=== PATIENT | male | born 1965 ===

== ENCOUNTER 2018-03-03 12:20 | Inpatient (IN) | payer MEDICAID ==
[2018-03-03] VITALS (8 sets, daily range): BP systolic 98–117; BP diastolic 56–82; BMI 14.8
[~2018-03-03] VITALS: Ht 185.4 cm; Wt 83.6 kg
[2018-03-03] MEDS ORDERED: IBUPROFEN800 MG PO (12:25)
[2018-03-03 13:04] LABS: BASOPHILS 0.2 % (0-2); EOSINOPHILS 0.1 % (0-7); HEMATOCRIT 32.9 % (42.0-54.0); HEMOGLOBIN 11.2 g/dL (13.5-17.5); IMMATURE GRANULOCYTES 1.3 % (0-5); LYMPHOCYTES 3.8 % (15-50); MCH 28.6 pg (26.0-34.0); MCV 83.9 fL (80.0-100.0); MEAN PLATELET VOLUME 11.5 fL (7.4-10.4); MONOCYTES 7.5 % (2-11); NEUTROPHILS 87.1 % (40-80); PLATELET COUNT 275 10x3/uL (130-400); RBC 3.92 10x6/uL (4.20-6.10); RDW 14.9 % (11.5-14.5); WBC 10.2 10x3/uL (4.8-10.8)
[2018-03-03 13:14] LABS: APTT 37.5 SECONDS (22.8-39.4); INR 1.02 (0.85-1.17); PROTIME 12.9 SECONDS (11.6-15.0)
[2018-03-03 13:30] LABS: ALBUMIN 1.5 g/dL (3.4-5.0); ALKALINE PHOSPHATASE 83 U/L (46-116); ALT (SGPT) 13 U/L (10-68); AMYLASE - SERUM 17 U/L (25-115); BILIRUBIN - TOTAL 0.63 mg/dL (0.2-1.3); CALC OSMOLALITY 273 mosm/kg (275-300); CALCIUM 8.1 mg/dL (8.5-10.1); CARBON DIOXIDE 22.4 mmol/L (21.0-32.0); CHLORIDE - SERUM 103 mmol/L (98-107); CKMB 1.6 U/L (0.0-3.6); CREATINE KINASE 73 UL (21-232); CREATININE - SERUM 0.6 mg/dL (0.6-1.3); GLUCOSE 71 mg/dL (74-106); PROTEIN - SERUM 7.2 g/dL (6.4-8.2); SODIUM 137 mmol/L (136-145); TROPONIN-I < 0.017 ng/mL (0.000-0.060); UREA NITROGEN 17 mg/dL (7-18); eGFR NON AFRICAN AMERICAN > 90 mL/min (90-120)
[2018-03-03 13:33] LABS: LIPASE 32 U/L (73-393)
[2018-03-03 13:35] LABS: POTASSIUM - SERUM 2.8 mmol/L (3.5-5.1)
[2018-03-03 13:57] LABS: APPEARANCE CLEAR (CLEAR); COLOR YELLOW (YELLOW); SPECIFIC GRAVITY 1.015 (1.005-1.020)
[2018-03-03 13:58] LABS: BACTERIA FEW /hpf (NONE SEEN); BILIRUBIN NEGATIVE (NEGATIVE); EPITHELIAL CELLS 0-5 /hpf (0-5); GLUCOSE NEGATIVE (NEGATIVE); KETONE MODERATE mg/dL (NEGATIVE); MUCUS <1+ /lpf (NONE SEEN); NITRITE NEGATIVE (NEGATIVE); PROTEIN 1+ mg/dL (NEGATIVE); RED CELLS - URINE RARE /hpf (0-5); WHITE CELLS - URINE RARE /hpf (0-5)
[2018-03-03 14:54] LABS: HIV 1 & 2- RAPID SCREEN NEGATIVE (NEGATIVE)
[2018-03-04 01:05] VITALS: BP 117/75
[2018-03-04 05:11] LABS: BASOPHILS 0.2 % (0-2); EOSINOPHILS 0 % (0-7); HEMATOCRIT 29.6 % (42.0-54.0); HEMOGLOBIN 10.1 g/dL (13.5-17.5); IMMATURE GRANULOCYTES 0.7 % (0-5); LYMPHOCYTES 5.2 % (15-50); MCH 28.1 pg (26.0-34.0); MCHC 34.1 g/dL (31.0-37.0); MCV 82.5 fL (80.0-100.0); MONOCYTES 3.5 % (2-11); NEUTROPHILS 90.4 % (40-80); RBC 3.59 10x6/uL (4.20-6.10); RDW 14.8 % (11.5-14.5)
[2018-03-04 05:22] LABS: PLATELET COUNT 192 10x3/uL (130-400)
[2018-03-04 05:42] LABS: ALKALINE PHOSPHATASE 67 U/L (46-116); ALT (SGPT) 17 U/L (10-68); BILIRUBIN - TOTAL 0.68 mg/dL (0.2-1.3); CALC OSMOLALITY 274 mosm/kg (275-300); CALCIUM 7.2 mg/dL (8.5-10.1); CARBON DIOXIDE 22.9 mmol/L (21.0-32.0); CHLORIDE - SERUM 104 mmol/L (98-107); CREATININE - SERUM 0.4 mg/dL (0.6-1.3); PROTEIN - SERUM 5.8 g/dL (6.4-8.2); SODIUM 138 mmol/L (136-145); UREA NITROGEN 14 mg/dL (7-18); eGFR NON AFRICAN AMERICAN > 90 mL/min (90-120)
[2018-03-04 05:43] LABS: ALBUMIN 1.1 g/dL (3.4-5.0); GLUCOSE 61 mg/dL (74-106)
[2018-03-04 06:29] VITALS: BP 124/80
[2018-03-04 08:00] VITALS: BP 115/69
[2018-03-04 12:26] VITALS: BMI 14.7
[2018-03-04 12:54] VITALS: BP 110/67
[2018-03-04 14:42] LABS: % SATURATION 17 % (15-55); IRON 12 ug/dl (35-150); TOTAL IRON BIND CAPACITY 67 ug/dl (260-445); UNSAT IRON BIND CAPACITY 55 ug/dl (150-375)
--- NOTE | 2018-03-04 16:30 | MORECARE ---
CASE MANAGEMENT DISCHARGE SUMMARY PATIENT: DENISHA DE LOS SANTOS UNIT: [id number] ADM DATE: 03/03/18 AGE: 52 : 63 SEX: M ROOM/BED: D.2222 AUTHOR: MARIA A ELLIS PHYSICIAN: REFERRING PHYSICIAN: TANYA PEREZ MD DATE OF SERVICE: 03/04/18 Discharge Plan Patient Name: DENISHA DE LOS SANTOS [facility] [facility] 1965 Planned Disposition: Home Anticipated Discharge Date: Discharge Date: Expected LOS: Initial Reviewer: [email or web address] Initial Review Date: 03/04/2018 Generated: 03/04/18 5:30 pm Patient Name: DENISHA DE LOS SANTOS Page [id number] at 1630 All edits/amendments must be made on the electronic document DICTATION DATE: 03/04/18 1630 SHANK CARRIER: KATHRYN 03/04/18 1630 RPT#: [id number] DC DATE: STATUS: ADM IN [facility] [address] [place] [address] END OF REPORT
--- NOTE | 2018-03-04 16:46 | MORECARE ---
CASE MANAGEMENT DISCHARGE SUMMARY PATIENT: DENISHA DE LOS SANTOS UNIT: [id number] ADM DATE: 03/03/18 AGE: 52 : 63 SEX: M ROOM/BED: D.2222 AUTHOR: CALEB,DOC PHYSICIAN: REFERRING PHYSICIAN: TANYA PEREZ MD DATE OF SERVICE: 03/04/18 Discharge Plan Patient Name: DENISHA DE LOS SANTOS Facility: [facility]:[place] : 1965 Planned Disposition: Home Anticipated Discharge Date: Discharge Date: Expected LOS: Initial Reviewer: [email or web address] Initial Review Date: 03/04/2018 Generated: 03/04/18 5:46 pm Comments DCP- Discharge Planning Updated by [email or web address]: Helena Cabrera on 03/04/18 3:[address] Patient Name: DENISHA DE LOS SANTOS Admission Status: ER Accout number: [id number] Admission Date: 03-03-2018 : 1965 Admission Diagnosis: Attending: TANYA PEREZ Current LOS: 1 Anticipated DC Date: Planned Disposition: Home Primary Insurance: MEDICAID [place] PENDING Discharge Planning Comments: CM met with patient to discuss discharge planning, he is alone in the room. States he lives with his 21 year old son. States his will take him home on discharge (he does not live with his , states she is his best friend). States he is independent with all ADL's and IADL's. States he does not have any DME or need any DME. Declines need for home health services. No needs currently identified. He does not have a qualifying diagnosis for oxygen or nebulizer. His Medicaid is pending. CM will continue to follow and assist with discharge planning/needs. Wood Milling Machine Hand: Helena Cabrera DCPIA - Discharge Planning Initial Assessment Updated by [email or web address]: Helena Cabrera on 03/04/18 4:31 pm * Is the patient Alert and Oriented? Yes * How many steps to enter\exit or inside your home? 4/0 * PCP Unknown - states has seen an TOUR ACTOR on [address] near [facility] * Pharmacy [facility] on [facility] * Preadmission Environment Home with Family * ADLs Independent * Equipment None * List name and contact numbers for known caregivers / representatives who currently or will assist patient after discharge: Eva - - [phone] Shannan - son * Verbal permission to speak to the caregivers and representatives has been obtained from the patient. Yes * Community resources currently utilized None * Additional services required to return to the preadmission environment? No * Can the patient safely return to the preadmission environment? Yes * Has this patient been hospitalized within the prior 30 days at any hospital? No Last DP export: 03/04/18 3:30 Patient Name: DENISHA DE LOS SANTOS Page [id number] at 1646 All edits/amendments must be made on the electronic document DICTATION DATE: 03/04/181645 ARMED SECURITY PROFESSIONAL: KATHRYN 03/04/181645 RPT#: [id number] DC DATE: STATUS: ADM IN [facility] [address] [place] [address] END OF REPORT
[2018-03-04 17:02] VITALS: Ht 185.4 cm; Wt 83.6 kg
[2018-03-04 17:21] LABS: ERYTHROCYTE SEDIMENTATION RATE 35 mm/hr (0-20)
[2018-03-04 20:41] VITALS: BP 143/92
[2018-03-05] VITALS (7 sets, daily range): BP systolic 103–130; BP diastolic 74–92
[2018-03-05 03:31] LABS: APPEARANCE CLEAR (CLEAR); COLOR DK YELLOW (YELLOW)
[2018-03-05 03:32] LABS: BILIRUBIN NEGATIVE (NEGATIVE); GLUCOSE NEGATIVE (NEGATIVE); KETONE MODERATE mg/dL (NEGATIVE); NITRITE NEGATIVE (NEGATIVE); PROTEIN NEGATIVE (NEGATIVE)
[2018-03-05 03:40] LABS: UDS - AMPHET NEGATIVE QUAL (NEGATIVE); UDS - BARB NEGATIVE QUAL (NEGATIVE); UDS - BENZO NEGATIVE QUAL (NEGATIVE); UDS - COCAINE NEGATIVE QUAL (NEGATIVE); UDS - OPIATE POSITIVE QUAL (NEGATIVE); UDS - PCP NEGATIVE QUAL (NEGATIVE); UDS - THC POSITIVE QUAL (NEGATIVE)
[2018-03-05 05:19] LABS: BASOPHILS 0.2 % (0-2); EOSINOPHILS 0 % (0-7); HEMATOCRIT 30.2 % (42.0-54.0); HEMOGLOBIN 10.2 g/dL (13.5-17.5); IMMATURE GRANULOCYTES 0.7 % (0-5); LYMPHOCYTES 7.8 % (15-50); MCH 27.9 pg (26.0-34.0); MCHC 33.8 g/dL (31.0-37.0); MCV 82.5 fL (80.0-100.0); MEAN PLATELET VOLUME 12.8 fL (7.4-10.4); MONOCYTES 5.1 % (2-11); NEUTROPHILS 86.2 % (40-80); PLATELET COUNT 239 10x3/uL (130-400); RBC 3.66 10x6/uL (4.20-6.10); WBC 10.5 10x3/uL (4.8-10.8)
[2018-03-05 05:24] LABS: CALC OSMOLALITY 273 mosm/kg (275-300); CALCIUM 7.5 mg/dL (8.5-10.1); CARBON DIOXIDE 22.4 mmol/L (21.0-32.0); CHLORIDE - SERUM 104 mmol/L (98-107); CREATININE - SERUM 0.5 mg/dL (0.6-1.3); GLUCOSE 85 mg/dL (74-106); POTASSIUM - SERUM 3.2 mmol/L (3.5-5.1); SODIUM 137 mmol/L (136-145); UREA NITROGEN 14 mg/dL (7-18); eGFR NON AFRICAN AMERICAN > 90 mL/min (90-120)
[2018-03-05 09:17] LABS: FOLATE (FOLIC ACID) - SERUM 7.3 ng/mL (>3.0)
[2018-03-05 12:15] LABS: ANA REFLEX - ANTICHROMATIN ABS 0.3 AI (0.0-0.9); ANA REFLEX - CENTROMERE B ABS <0.2 AI (0.0-0.9); ANA REFLEX - DBL STRANDED DNA 1 IU/mL (0-9); ANA REFLEX - DIRECT Positive (Negative); ANA REFLEX - JO-1 AB <0.2 AI (0.0-0.9); ANA REFLEX - RNP ANTIBODIES 0.9 AI (0.0-0.9); ANA REFLEX - SCL-70 <0.2 AI (0.0-0.9); ANA REFLEX - SJOGRENS AB SSA >8.0 AI (0.0-0.9); ANA REFLEX - SJOGRENS AB SSB <0.2 AI (0.0-0.9); ANA REFLEX - SMITH AB 0.4 AI (0.0-0.9)
[2018-03-06] VITALS (65 sets, daily range): BP systolic 74–172; BP diastolic 44–118
[2018-03-06 03:32] LABS: BASOPHILS 0.2 % (0-2); EOSINOPHILS 0 % (0-7); HEMATOCRIT 31.1 % (42.0-54.0); HEMOGLOBIN 10.5 g/dL (13.5-17.5); IMMATURE GRANULOCYTES 0.7 % (0-5); MCH 27.7 pg (26.0-34.0); MCHC 33.8 g/dL (31.0-37.0); MCV 82.1 fL (80.0-100.0); MEAN PLATELET VOLUME 11.9 fL (7.4-10.4); MONOCYTES 5.3 % (2-11); NEUTROPHILS 83.8 % (40-80); PLATELET COUNT 207 10x3/uL (130-400); RBC 3.79 10x6/uL (4.20-6.10); RDW 14.6 % (11.5-14.5); WBC 11.2 10x3/uL (4.8-10.8)
[2018-03-06 03:47] LABS: CALC OSMOLALITY 273 mosm/kg (275-300); CALCIUM 7.4 mg/dL (8.5-10.1); CARBON DIOXIDE 19.2 mmol/L (21.0-32.0); CHLORIDE - SERUM 103 mmol/L (98-107); CREATININE - SERUM 0.5 mg/dL (0.6-1.3); GLUCOSE 81 mg/dL (74-106); MAGNESIUM - SERUM 1.9 mg/dL (1.8-2.4); POTASSIUM - SERUM 3.6 mmol/L (3.5-5.1); SODIUM 138 mmol/L (136-145); UREA NITROGEN 10 mg/dL (7-18); eGFR NON AFRICAN AMERICAN > 90 mL/min (90-120)
[2018-03-06 08:16] LABS: IMMUNOGLOBULIN A 594 mg/dL (90-386)
[2018-03-06 08:38] LABS: CKMB 2.8 U/L (0.0-3.6); CREATINE KINASE 97 UL (21-232); PRO BNP 21059 pg/mL (0-125)
[2018-03-06 11:14] LABS: CKMB 3.7 U/L (0.0-3.6); CREATINE KINASE 164 UL (21-232); PHOSPHOROUS 5.2 mg/dL (2.5-4.9)
[2018-03-06 11:20] LABS: TROPONIN-I 0.646 ng/mL (0.000-0.060)
[2018-03-06 17:02] LABS: CKMB 4.4 U/L (0.0-3.6); CREATINE KINASE 177 UL (21-232)
[2018-03-06 17:07] LABS: TROPONIN-I 0.548 ng/mL (0.000-0.060)
[2018-03-07] VITALS (73 sets, daily range): BP systolic 56–168; BP diastolic 53–90
[2018-03-07 01:57] LABS: BASOPHILS 0.1 % (0-2); EOSINOPHILS 0 % (0-7); HEMATOCRIT 28.7 % (42.0-54.0); HEMOGLOBIN 9.9 g/dL (13.5-17.5); LYMPHOCYTES 7.6 % (15-50); MCH 28.4 pg (26.0-34.0); MCHC 34.5 g/dL (31.0-37.0); MCV 82.5 fL (80.0-100.0); MEAN PLATELET VOLUME 11.6 fL (7.4-10.4); MONOCYTES 4.9 % (2-11); NEUTROPHILS 86.4 % (40-80); PLATELET COUNT 191 10x3/uL (130-400); RBC 3.48 10x6/uL (4.20-6.10); RDW 14.8 % (11.5-14.5); WBC 13.9 10x3/uL (4.8-10.8)
[2018-03-07 02:08] LABS: ALBUMIN 1.3 g/dL (3.4-5.0); ALKALINE PHOSPHATASE 81 U/L (46-116); ALT (SGPT) 20 U/L (10-68); BILIRUBIN - TOTAL 0.37 mg/dL (0.2-1.3); CALC OSMOLALITY 291 mosm/kg (275-300); CALCIUM 6.2 mg/dL (8.5-10.1); CARBON DIOXIDE 30.6 mmol/L (21.0-32.0); CHLORIDE - SERUM 106 mmol/L (98-107); CREATINE KINASE 187 UL (21-232); CREATININE - SERUM 0.5 mg/dL (0.6-1.3); GLUCOSE 208 mg/dL (74-106); MAGNESIUM - SERUM 1.7 mg/dL (1.8-2.4); PHOSPHOROUS 2.3 mg/dL (2.5-4.9); POTASSIUM - SERUM 3.8 mmol/L (3.5-5.1); PROTEIN - SERUM 5.3 g/dL (6.4-8.2); SODIUM 144 mmol/L (136-145); UREA NITROGEN 9 mg/dL (7-18); VANCOMYCIN - TROUGH 16.8 ug/mL (10.0-20.0); eGFR NON AFRICAN AMERICAN > 90 mL/min (90-120)
[2018-03-07 19:45] LABS: POTASSIUM - SERUM 3.9 mmol/L (3.5-5.1)
[2018-03-07 20:13] LABS: MAGNESIUM - SERUM 2.2 mg/dL (1.8-2.4)
[2018-03-08] VITALS (94 sets, daily range): BP systolic 93–133; BP diastolic 67–89
[2018-03-08 06:28] LABS: ALKALINE PHOSPHATASE 61 U/L (46-116); BILIRUBIN - TOTAL 0.32 mg/dL (0.2-1.3); CHLORIDE - SERUM 108 mmol/L (98-107); GLUCOSE 183 mg/dL (74-106); MAGNESIUM - SERUM 2.1 mg/dL (1.8-2.4); PHOSPHOROUS 2.3 mg/dL (2.5-4.9); POTASSIUM - SERUM 3.6 mmol/L (3.5-5.1); PROTEIN - SERUM 5.1 g/dL (6.4-8.2); SODIUM 145 mmol/L (136-145)
[2018-03-08 06:34] LABS: ALT (SGPT) 14 U/L (10-68); CALC OSMOLALITY 294 mosm/kg (275-300); CALCIUM 6.1 mg/dL (8.5-10.1); CREATININE - SERUM 0.8 mg/dL (0.6-1.3); UREA NITROGEN 16 mg/dL (7-18); eGFR NON AFRICAN AMERICAN > 90 mL/min (90-120)
[2018-03-08 06:43] LABS: BASOPHILS 0.2 % (0-2); EOSINOPHILS 0 % (0-7); HEMATOCRIT 27.6 % (42.0-54.0); HEMOGLOBIN 8.9 g/dL (13.5-17.5); IMMATURE GRANULOCYTES 0.9 % (0-5); LYMPHOCYTES 7.3 % (15-50); MCH 27.5 pg (26.0-34.0); MCHC 32.2 g/dL (31.0-37.0); MCV 85.2 fL (80.0-100.0); MEAN PLATELET VOLUME 12.7 fL (7.4-10.4); MONOCYTES 4.2 % (2-11); NEUTROPHILS 87.4 % (40-80); PLATELET COUNT 185 10x3/uL (130-400); RBC 3.24 10x6/uL (4.20-6.10); RDW 14.7 % (11.5-14.5); WBC 20.1 10x3/uL (4.8-10.8)
[2018-03-08 13:11] LABS: JO-1 ANTIBODY <0.2 AI (0.0-0.9)
[2018-03-08 18:07] LABS: AEROBE ID Final report (())
[2018-03-09] VITALS (87 sets, daily range): BP systolic 88–138; BP diastolic 63–98
[2018-03-09 05:48] LABS: BASOPHILS 0.1 % (0-2); EOSINOPHILS 0 % (0-7); HEMATOCRIT 26.3 % (42.0-54.0); HEMOGLOBIN 8.5 g/dL (13.5-17.5); IMMATURE GRANULOCYTES 1.5 % (0-5); LYMPHOCYTES 4.2 % (15-50); MCH 28.3 pg (26.0-34.0); MCHC 32.3 g/dL (31.0-37.0); MCV 87.7 fL (80.0-100.0); MEAN PLATELET VOLUME 13.4 fL (7.4-10.4); MONOCYTES 3.9 % (2-11); NEUTROPHILS 90.3 % (40-80); PLATELET COUNT 193 10x3/uL (130-400); RDW 15.1 % (11.5-14.5); WBC 19.5 10x3/uL (4.8-10.8)
[2018-03-09 06:26] LABS: CALC OSMOLALITY 294 mosm/kg (275-300); CARBON DIOXIDE 28.6 mmol/L (21.0-32.0); CHLORIDE - SERUM 109 mmol/L (98-107); CREATININE - SERUM 0.7 mg/dL (0.6-1.3); GLUCOSE 157 mg/dL (74-106); POTASSIUM - SERUM 3.3 mmol/L (3.5-5.1); SODIUM 145 mmol/L (136-145); UREA NITROGEN 20 mg/dL (7-18); eGFR NON AFRICAN AMERICAN > 90 mL/min (90-120)
[2018-03-09 06:30] LABS: CALCIUM 6.3 mg/dL (8.5-10.1)
[2018-03-09 16:06] LABS: IGG SUBCLASS 1 1138 mg/dL (248-810); IGG SUBCLASS 2 390 mg/dL (130-555); IGG SUBCLASS 3 100 mg/dL (15-102); IGG SUBCLASS 4 61 mg/dL (2-96); IMMUNOGLOBULIN G 1766 mg/dL (700-1600)
[2018-03-10] VITALS (32 sets, daily range): BP systolic 103–137; BP diastolic 59–82
[2018-03-10 06:12] LABS: BASOPHILS 0.1 % (0-2); EOSINOPHILS 0 % (0-7); HEMOGLOBIN 8.6 g/dL (13.5-17.5); IMMATURE GRANULOCYTES 1.8 % (0-5); LYMPHOCYTES 3.4 % (15-50); MCH 27.9 pg (26.0-34.0); MCHC 31.9 g/dL (31.0-37.0); MCV 87.7 fL (80.0-100.0); MEAN PLATELET VOLUME 12.8 fL (7.4-10.4); NEUTROPHILS 88.7 % (40-80); PLATELET COUNT 214 10x3/uL (130-400); RBC 3.08 10x6/uL (4.20-6.10); RDW 15.1 % (11.5-14.5); WBC 19.4 10x3/uL (4.8-10.8)
[2018-03-10 06:39] LABS: CALC OSMOLALITY 291 mosm/kg (275-300); CARBON DIOXIDE 28.5 mmol/L (21.0-32.0); CHLORIDE - SERUM 109 mmol/L (98-107); CREATININE - SERUM 0.6 mg/dL (0.6-1.3); GLUCOSE 135 mg/dL (74-106); POTASSIUM - SERUM 3.6 mmol/L (3.5-5.1); SODIUM 144 mmol/L (136-145); UREA NITROGEN 20 mg/dL (7-18); eGFR NON AFRICAN AMERICAN > 90 mL/min (90-120)
[2018-03-10 06:46] LABS: CALCIUM 6.5 mg/dL (8.5-10.1)
--- NOTE | 2018-03-10 18:53 | OP ---
PATIENT NAME: DENISHA DE LOS SANTOS MEDICAL RECORD: [id number] :63 LOCATION[facility] D.2303 ADMISSION DATE:03/03/18 SURGEON: DENISHA SÁNCHEZ MD DATE OF OPERATION: 03/06/2018 PREOPERATIVE DIAGNOSES: 1. Status post code blue resuscitation. 2. Ventilatory failure requiring mechanical ventilation. 3. Hypotension. 4. In need of additional IV access for numerous IV medications. 5. In need of central access for central venous pressure monitoring. POSTOPERATIVE DIAGNOSES: 1. Status post post code blue resuscitation. 2. Ventilatory failure requiring mechanical ventilation. 3. Hypotension. 4. In need of additional IV access for numerous IV medications. 5. In need of central access for central venous pressure monitoring during the procedure. PROCEDURES: 1. Insertion of left internal jugular 16 cm triple-lumen central venous catheter. 2. Placement of left radial arterial line for continuous hemodynamic monitoring. SURGEON: Denisha Sánchez MD MAINTENANCE TECH: None. BLOOD LOSS: Minimal. ANESTHESIA: Local as well as IV paralytic. COMPLICATIONS: None. Consent was given by the patient's . OPERATIVE COURSE: The patient was positioned in the Trendelenburg position. This procedure was performed at the bedside in the ICU. The left neck was sterilely prepped and draped. Local anesthetic was used to infiltrate the skin and subcutaneous tissues at the base of left neck. The left internal jugular vein was percutaneously accessed in an antegrade fashion. A guidewire passed easily. A small skin real was accomplished. A vessel dilator was used to dilate a subcutaneous tract. A 16 cm triple-lumen central venous catheter was inserted to the hub. It was sutured in place times 3. All lumens flushed easily and aspirated dark, nonpulsatile blood. Attention was then turned to the arterial line. The left wrist was supinated. The volar surface of the left wrist was sterilely prepped and draped. Utilizing sterile technique, I percutaneously accessed the left radial artery after checking an Bj's test. The Jb's test did demonstrate adequate collateral flow via the ulnar artery. When I accessed the artery, I was able to advance a guidewire. A small skin real was accomplished. A long Angiocath-type catheter OPERATIVE REPORT [id number] DENISHA DE LOS SANTOS was inserted over the guidewire. It was attached to a flush transducer tubing and the arterial line was sutured in place with the silks times 3. There was an excellent waveform on the monitor. A sterile dressing was applied. A chest x-ray was then pending. TRANSINT:[id number] Voice Confirmation ID: [id number] DOCUMENT ID: [id number] 03/10/2018 Edited to correct mess cook errors, [email or web address]. DENISHA SÁNCHEZ MD at 1853 CC: [id number] DICTATION DATE: 03/06/18 1543 ECONOMIC SPECIALIST: 03/06/18 2203 ADM IN [place] [id number] [place] [id number]
[2018-03-11] VITALS (22 sets, daily range): BP systolic 102–136; BP diastolic 61–92
[2018-03-11 06:26] LABS: HEMATOCRIT 27.2 % (42.0-54.0); HEMOGLOBIN 8.8 g/dL (13.5-17.5); MCH 27.9 pg (26.0-34.0); MCHC 32.4 g/dL (31.0-37.0); MCV 86.3 fL (80.0-100.0); MEAN PLATELET VOLUME 12.4 fL (7.4-10.4); PLATELET COUNT 247 10x3/uL (130-400); RBC 3.15 10x6/uL (4.20-6.10); RDW 14.8 % (11.5-14.5); WBC 25.5 10x3/uL (4.8-10.8)
[2018-03-11 06:27] LABS: CALC OSMOLALITY 287 mosm/kg (275-300); CARBON DIOXIDE 28.5 mmol/L (21.0-32.0); CHLORIDE - SERUM 108 mmol/L (98-107); CREATININE - SERUM 0.7 mg/dL (0.6-1.3); GLUCOSE 126 mg/dL (74-106); POTASSIUM - SERUM 3.1 mmol/L (3.5-5.1); SODIUM 142 mmol/L (136-145); UREA NITROGEN 20 mg/dL (7-18); eGFR NON AFRICAN AMERICAN > 90 mL/min (90-120)
[2018-03-11 06:28] LABS: CALCIUM 6.4 mg/dL (8.5-10.1)
[2018-03-11 06:50] LABS: LYMPHOCYTES 5 % (15-50); MONOCYTES 3 % (2-11); NEUTROPHILS 89 % (40-80); PLATELET ESTIMATE NORMAL
--- NOTE | 2018-03-11 14:56 | EC ---
PATIENT:DENISHA DE LOS SANTOS DATE OF SERVICE: 03/03/18 SEX: M MEDICAL RECORD: [id number] DATE OF : [birth year] LOCATION:[facility] AGE OF PATIENT: 53 ADMISSION DATE: 03/03/18 REFERRING PHYSICIAN: INTERPRETING PHYSICIAN: DK WEINSTEIN MD ECHOCARDIOGRAM REPORT ECHO CHARGES 4 ECHO COMPLETE Date: 03/05/18 CLINICAL DIAGNOSIS: R/O VEGETATION ECHOCARDIOGRAPHIC MEASUREMENTS (adult normal given) AC root (d.<3.7cm) 3.8 cm LV Septum d (<1.2 cm> 1.2 cm Valve Excursion 2.5 cm LV Septum (systole) 1.6 cm Left Atria (s.<4.0cm> 3.1 cm LVPW d(<1.2cm) 1.1 cm RV (d.<2.3cm) 2.0 cm LVPW (sytole) 1.6 cm LV diastole(<5.6CM) 5.1 cm MV E-F(>70mm/sec) cm LV systole 3.0 cm LVOT Diameter 2.3 cm MV exc.(>10mm) cm Est.ejection fraction (50-75%) % DOPPLER: LVIT cm/sec A 79.0 cm/sec E 67.0 cm/sec LA cm/sec RVSP 19.0 mmHg LVOT 102 cm/sec AOP1/2T m/s Asc. Ao 142 cm/sec RVOT 101 cm/sec RA cm/sec PA 106 cm/sec AV Gradient Peak 8.1 mmHg AV Mean 3.7 mmHg AV Area 2.8 cm MV Gradient Peak 4.1 mmHg MV Mean 1.9 mmHg MV Area cm COMMENTS: Tax Collector: Jimmy FREGOSO Track Worker: 2 Dr. Granados TAPE# PACS Pericardial Effusion N DATE OF SERVICE: 03/04/2018 FINDINGS: 1. Left ventricular chamber size is within normal limits. Left ventricular systolic function is normal. Overall ejection fraction is estimated at 55% to 60%. 2. Left atrium, right atrium, and right ventricular chamber sizes are within normal limit. 3. Valvular structures have normal structure and motion. 4. Doppler interrogation reveals mild mitral regurgitation and trace tricuspid ECHOCARDIOGRAM REPORT [id number] DENISHA DE LOS SANTOS regurgitation. No other valvular insufficiency or stenosis. Pulmonary systolic pressure is estimated at 19 mmHg. 5. No evidence of pericardial effusion or left ventricular thrombus. 6. No evidence of vegetative endocarditis. TRANSINT:[id number] Voice Confirmation ID: [id number] DOCUMENT ID: [id number] DK WEINSTEIN MD at 1456 CC: [id number] DICTATION DATE: 03/05/18 1246 ROLLER CLEANER: 03/05/18 1621 ADM IN [place] [id number] [place] [address]
--- NOTE | 2018-03-11 14:56 | EC ---
PATIENT:DENISHA DE LOS SANTOS DATE OF SERVICE: 03/03/18 SEX: M MEDICAL RECORD: [id number] DATE OF : 63 LOCATION:[facility] D230 AGE OF PATIENT: 53 ADMISSION DATE: 03/03/18 REFERRING PHYSICIAN: INTERPRETING PHYSICIAN: DK PICHARDO MD ECHOCARDIOGRAM REPORT ECHO CHARGES 5 ECHO LIMITED Date: 03/06/18 1 DOPPLER ECHO COLOR FLOW 2 DOPPLER ECHO PULSE CLINICAL DIAGNOSIS: S/P CODE ECHOCARDIOGRAPHIC MEASUREMENTS (adult normal given) AC root (d.<3.7cm) 0 cm LV Septum d (<1.2 cm> 0 cm Valve Excursion 0 cm LV Septum (systole) 0 cm Left Atria (s.<4.0cm> 0 cm LVPW d(<1.2cm) 0 cm RV (d.<2.3cm) 0 cm LVPW (sytole) 0 cm LV diastole(<5.6CM) 0 cm MV E-F(>70mm/sec) 0 cm LV systole 0 cm LVOT Diameter 0 cm MV exc.(>10mm) 0 cm Est.ejection fraction (50-75%) % DOPPLER: LVIT 0 cm/sec A 0 cm/sec E 0 cm/sec LA 0 cm/sec RVSP 38.0 mmHg LVOT 0 cm/sec AOP1/2T 0 m/s Asc. Ao 0 cm/sec RVOT 0 cm/sec RA 0 cm/sec PA 0 cm/sec AV Gradient Peak 0 mmHg AV Mean 0 mmHg AV Area 0 cm MV Gradient Peak 0 mmHg MV Mean 0 mmHg MV Area 0 cm COMMENTS: LIMITED STUDY (2-D,COLOR,DOPPLER) COMPLETE ECHO DONE ON 03/05/18 Die Cutter Apprentice: Jimmy BRADYOE Refinery Pipeline Operator: 1 Dr. Pichardo TAPE# PACS Pericardial Effusion N DATE OF SERVICE: 03/06/2018 PROCEDURE: Echocardiogram. FINDINGS: 1. Left ventricular chamber size is within normal limits. Left ventricular systolic function is markedly reduced, overall ejection fraction in the 25% range. This is a significant change from echocardiogram done the day before where an ejection fraction was overall normal. There is global hypokinesis throughout all segments, but no discrete wall motion abnormalities are present. ECHOCARDIOGRAM REPORT [id number] DENISHA DE LOS SANTOS 2. Left atrium, right atrium, and right ventricle chamber sizes are within normal limits. 3. Valvular structures have normal structure and motion. 4. Doppler interrogation reveals trace aortic insufficiency, mild mitral regurgitation, mild tricuspid regurgitation, no other valvular insufficiency or stenosis. Pulmonary systolic pressure is estimated 38 mmHg. 5. No evidence of pericardial effusion or left ventricular thrombus. TRANSINT:[id number] Voice Confirmation ID: [id number] DOCUMENT ID: [id number] DK PICHARDO MD at 1456 CC: [id number] DICTATION DATE: 03/07/18900 CARTOON ANIMATOR: 03/07/18 1016 ADM IN [facility] [address] [place] [id number]
--- NOTE | 2018-03-11 14:56 | CN ---
PATIENT NAME:DENISHA DE LOS SANTOS MEDICAL RECORD: [id number] : 63 LOCATION:[facility].2303 ADMIT DATE: 03/03/18 ACCOUNT: [id number] CONSULTING PHYSICIAN: DK WEINSTEIN MD REFERRING PHYSICIAN: TANYA PEREZ MD DATE OF CONSULTATION: 03/06/2018 DIAGNOSES: 1. Dermatomyositis. 2. Aspiration pneumonia. 3. Hypoxemia. 4. Hypotension. 5. Atrial fibrillation. 6. Ventricular tachycardia. 7. Status post cardiopulmonary arrest. HISTORY OF PRESENT ILLNESS: This is a gentleman, who has a known diagnosis of dermatomyositis, who came into the hospital with respiratory difficulties. This progressed to respiratory failure. He went into atrial fibrillation prior to the code this morning. With the code, he then went into ventricular tachycardia and then PEA. He survived that. He is now intubated, hypotensive in the unit. He is now with a sinus tachycardia. He is on amiodarone. He did have an echo 3 days ago that showed a normal ejection fraction and no pericardial effusion. PHYSICAL EXAMINATION: GENERAL APPEARANCE: Well-nourished, well-developed, appears stated age. Level of distress, comfortable. PSYCHIATRIC: Mental status, alert, normal affect. Orientation, oriented to time, place and person. EYES: Lids and conjunctiva, noninjected. No discharge, no pallor. ENT: Lips, teeth, gums, normal dentition. Oropharynx, no cyanosis, no pallor. NECK: Carotid arteries, bilateral normal upstroke, no bruits, no thrills. JUGULAR VEINS: No jugular venous pressure or distention. CERVICAL LYMPH NODES: Nontender, nonenlarged. THYROID: Not enlarged. Nontender. No nodules. LUNGS: Respiratory effort, unlabored. CHEST: Normal curvature. No thoracic deformity. No chest wall tenderness. Percussion, resonant. Auscultation, clear. No wheezes, no rales, no rhonchi. CARDIOVASCULAR: Precordial exam, nondisplaced. No heaves or pericardial thrills. Rate and rhythm, regular. Heart sounds, normal S1, normal S2. No S3, no gallop, no rub. Systolic murmur, not heard. Diastolic murmur, not heard. EXTREMITIES: No cyanosis, no edema. Peripheral pulses, full and equal in all extremities, except as noted. No bruits appreciated. ABDOMEN: Soft, nondistended. Normal aorta. No bruit. Nontender. No masses. Liver, nontender, no hepatomegaly. Spleen, nontender, no splenomegaly. MUSCULOSKELETAL: No joint tenderness. No joint swelling. No erythema. NEUROLOGICAL: Normal gait, normal strength, normal tone. SKIN: Warm and dry. OVERALL IMPRESSION: The dysrhythmias are hypoxemia driven, not primary cardiac. At this time, he is in sinus tachycardia as he is oxygenated on the vent. We will just repeat the echo to make sure he has no change from a structural cardiac standpoint. Otherwise, no other cardiac workup or treatment will be necessary. CONSULT REPORT [id number] DENISHA DE LOS SANTOS TRANSINT:[id number] Voice Confirmation ID: [id number] DOCUMENT ID: [id number] DK WEINSTEIN MD at 1456 CC: [id number] DICTATION DATE: 03/06/18 1010 GEOTECHNICAL DEPARTMENT MANAGER: 03/06/18 1210 ADM IN [place] [id number] [place] [address]
[2018-03-12] VITALS (20 sets, daily range): BP systolic 97–147; BP diastolic 60–93
[2018-03-12 06:35] LABS: CALC OSMOLALITY 285 mosm/kg (275-300); CARBON DIOXIDE 25.9 mmol/L (21.0-32.0); CHLORIDE - SERUM 106 mmol/L (98-107); GLUCOSE 163 mg/dL (74-106); SODIUM 140 mmol/L (136-145); UREA NITROGEN 20 mg/dL (7-18)
[2018-03-12 06:37] LABS: BASOPHILS 0.1 % (0-2); EOSINOPHILS 0 % (0-7); HEMATOCRIT 29.8 % (42.0-54.0); HEMOGLOBIN 9.7 g/dL (13.5-17.5); IMMATURE GRANULOCYTES 2.6 % (0-5); LYMPHOCYTES 3.7 % (15-50); MCH 28.5 pg (26.0-34.0); MCHC 32.6 g/dL (31.0-37.0); MCV 87.6 fL (80.0-100.0); MEAN PLATELET VOLUME 12.4 fL (7.4-10.4); MONOCYTES 1.2 % (2-11); NEUTROPHILS 92.4 % (40-80); PLATELET COUNT 279 10x3/uL (130-400); RDW 15.2 % (11.5-14.5); WBC 25.3 10x3/uL (4.8-10.8)
[2018-03-12 06:50] LABS: CREATININE - SERUM 0.4 mg/dL (0.6-1.3); POTASSIUM - SERUM 3.3 mmol/L (3.5-5.1); eGFR NON AFRICAN AMERICAN > 90 mL/min (90-120)
[2018-03-12 06:51] LABS: CALCIUM 6.2 mg/dL (8.5-10.1)
[2018-03-13] VITALS (25 sets, daily range): BP systolic 91–130; BP diastolic 52–83
[2018-03-13 07:13] LABS: BASOPHILS 0.1 % (0-2); EOSINOPHILS 0 % (0-7); HEMATOCRIT 30.3 % (42.0-54.0); IMMATURE GRANULOCYTES 2.4 % (0-5); LYMPHOCYTES 3.4 % (15-50); MCH 29.3 pg (26.0-34.0); MCV 88.9 fL (80.0-100.0); MEAN PLATELET VOLUME 11.9 fL (7.4-10.4); MONOCYTES 2.2 % (2-11); NEUTROPHILS 91.9 % (40-80); PLATELET COUNT 307 10x3/uL (130-400); RBC 3.41 10x6/uL (4.20-6.10); RDW 16.2 % (11.5-14.5); WBC 26.6 10x3/uL (4.8-10.8)
[2018-03-13 07:34] LABS: CALC OSMOLALITY 284 mosm/kg (275-300); CHLORIDE - SERUM 106 mmol/L (98-107); GLUCOSE 162 mg/dL (74-106); POTASSIUM - SERUM 3.9 mmol/L (3.5-5.1); SODIUM 139 mmol/L (136-145); UREA NITROGEN 20 mg/dL (7-18)
[2018-03-13 07:35] LABS: CREATININE - SERUM 0.6 mg/dL (0.6-1.3); eGFR NON AFRICAN AMERICAN > 90 mL/min (90-120)
[2018-03-13 07:36] LABS: CALCIUM 5.7 mg/dL (8.5-10.1)
[2018-03-13 18:07] LABS: ANCA - ANTIMYELOPEROXIDASE <9.0 U/mL (0.0-9.0); ANCA - ANTIPROTEINASE 3 <3.5 U/mL (0.0-3.5); ANCA - ATYPICAL <1:20 titer (Neg:<1:20); ANCA - CYTOPLASMIC <1:20 titer (Neg:<1:20); ANCA - PERINUCLEAR <1:20 titer (Neg:<1:20)
[2018-03-14] VITALS (24 sets, daily range): BP systolic 109–143; BP diastolic 54–84
[2018-03-14 05:26] LABS: BASOPHILS 0 % (0-2); EOSINOPHILS 0 % (0-7); HEMATOCRIT 27.8 % (42.0-54.0); HEMOGLOBIN 9.2 g/dL (13.5-17.5); IMMATURE GRANULOCYTES 3.4 % (0-5); LYMPHOCYTES 4.5 % (15-50); MCH 29.4 pg (26.0-34.0); MCHC 33.1 g/dL (31.0-37.0); MCV 88.8 fL (80.0-100.0); MEAN PLATELET VOLUME 11.7 fL (7.4-10.4); MONOCYTES 2.1 % (2-11); PLATELET COUNT 328 10x3/uL (130-400); RBC 3.13 10x6/uL (4.20-6.10); RDW 16.1 % (11.5-14.5); WBC 22.6 10x3/uL (4.8-10.8)
[2018-03-14 05:46] LABS: CALC OSMOLALITY 284 mosm/kg (275-300); CARBON DIOXIDE 27.8 mmol/L (21.0-32.0); CHLORIDE - SERUM 106 mmol/L (98-107); CREATININE - SERUM 0.5 mg/dL (0.6-1.3); GLUCOSE 158 mg/dL (74-106); POTASSIUM - SERUM 3.7 mmol/L (3.5-5.1); SODIUM 140 mmol/L (136-145); UREA NITROGEN 21 mg/dL (7-18); eGFR NON AFRICAN AMERICAN > 90 mL/min (90-120)
[2018-03-14 05:48] LABS: CALCIUM 6.3 mg/dL (8.5-10.1)
[2018-03-15] VITALS (24 sets, daily range): BP systolic 86–160; BP diastolic 43–84
[2018-03-15 05:21] LABS: CALC OSMOLALITY 291 mosm/kg (275-300); CARBON DIOXIDE 29.4 mmol/L (21.0-32.0); CHLORIDE - SERUM 109 mmol/L (98-107); CREATININE - SERUM 0.5 mg/dL (0.6-1.3); GLUCOSE 137 mg/dL (74-106); POTASSIUM - SERUM 3.7 mmol/L (3.5-5.1); SODIUM 144 mmol/L (136-145); UREA NITROGEN 20 mg/dL (7-18); eGFR NON AFRICAN AMERICAN > 90 mL/min (90-120)
[2018-03-15 05:27] LABS: HEMATOCRIT 25.7 % (42.0-54.0); HEMOGLOBIN 8.5 g/dL (13.5-17.5); IMMATURE GRANULOCYTES 1.6 % (0-5); MCH 29.4 pg (26.0-34.0); MCHC 33.1 g/dL (31.0-37.0); MCV 88.9 fL (80.0-100.0); MEAN PLATELET VOLUME 11.4 fL (7.4-10.4); PLATELET COUNT 356 10x3/uL (130-400); RBC 2.89 10x6/uL (4.20-6.10); RDW 16.2 % (11.5-14.5); WBC 30.1 10x3/uL (4.8-10.8)
[2018-03-15 05:31] LABS: CALCIUM 6.3 mg/dL (8.5-10.1)
[2018-03-15 16:27] LABS: LYMPHOCYTES 4 % (15-50); MONOCYTES 2 % (2-11); NEUTROPHILS 93 % (40-80); PLATELET ESTIMATE NORMAL; ROULEAUX OCC; TARGET CELLS OCC
[2018-03-15 17:08] LABS: SPE - A/G RATIO 0.4 (0.7-1.7); SPE - ALBUMIN 1.5 g/dL (2.9-4.4); SPE - ALPHA-1 GLOBULIN 0.2 g/dL (0.0-0.4); SPE - ALPHA-2 GLOBULIN 1.1 g/dL (0.4-1.0); SPE - BETA GLOBULIN 0.8 g/dL (0.7-1.3); SPE - GAMMA GLOBULIN 1.6 g/dL (0.4-1.8); SPE - M-SPIKE Not Observed g/dL (Not Observed); SPE - TOTAL PROTEIN 5.1 g/dL (6.0-8.5)
--- NOTE | 2018-03-15 17:55 | OP ---
PATIENT NAME: DENISHA DE LOS SANTOS MEDICAL RECORD: [id number] :63 LOCATION:.[facility] D.2303 ADMISSION DATE:03/03/18 SURGEON: COLBY PIERCE MD DATE OF OPERATION: 03/05/2018 PREOPERATIVE DIAGNOSES: 1. Rash. 2. Myalgia. 3. Pneumonia. 4. Renal mass. POSTOPERATIVE DIAGNOSES: 1. Rash. 2. Myalgia. 3. Pneumonia. 4. Renal mass. PROCEDURES: 1. Right posterior elbow skin biopsy. 2. Right distal bicep muscle biopsy. SURGEON: Colby Pierce MD REPORT OF PROCEDURE: The patient's right upper extremity was prepped and draped in sterile fashion. The patient had a focal full-thickness skin eruption on the posterior aspect of the right elbow. An ovoid incision 4 cm in length and 1.5 cm wide was made around this rash incorporating all of the scaly rash present. This was continued down through the subcutaneous tissues. Once this was completely excised, then the wound was irrigated out with normal saline. The skin was then closed with running 5-0 Monocryl. A skin incision was then made on the right distal upper arm. Electrocautery was used to dissect through the subcutaneous tissue. We opened up the fascia overlying the distal bicep muscle. A portion of the bicep muscle was freed up from the surrounding tissues using a hemostat and the muscle biopsy tool was clamped on the muscle tissue. The muscle was excised on each end using electrocautery and sent off for permanent specimen. We irrigated out the wound with normal saline. The fascia was reapproximated with a running 3-0 Vicryl and the skin was closed with running subcutaneous 5-0 Monocryl. The patient was given 10 mL of 1% lidocaine with epinephrine at the beginning of the procedure. The wounds were all then dressed appropriately. COMPLICATIONS: None. CONDITION: Stable. ANESTHESIA: Local MAC. BLOOD LOSS: Minimal. TRANSINT:[id number] Voice Confirmation ID: [id number] DOCUMENT ID: [id number] OPERATIVE REPORT [id number] FILIBERTODENISHA COLBY PIERCE MD at 1755 CC: [id number] DICTATION DATE: 03/05/18 161 GENERAL STORE MANAGER: 03/06/18 0047 ADM IN [place] [id number]
[2018-03-16] VITALS (24 sets, daily range): BP systolic 95–150; BP diastolic 51–79
[2018-03-16 05:39] LABS: BASOPHILS 0 % (0-2); EOSINOPHILS 0 % (0-7); HEMATOCRIT 23.3 % (42.0-54.0); HEMOGLOBIN 7.6 g/dL (13.5-17.5); IMMATURE GRANULOCYTES 1.2 % (0-5); LYMPHOCYTES 2.9 % (15-50); MCH 29.2 pg (26.0-34.0); MCHC 32.6 g/dL (31.0-37.0); MCV 89.6 fL (80.0-100.0); MEAN PLATELET VOLUME 11.7 fL (7.4-10.4); MONOCYTES 1.9 % (2-11); PLATELET COUNT 368 10x3/uL (130-400); RDW 16.4 % (11.5-14.5); WBC 29.9 10x3/uL (4.8-10.8)
[2018-03-16 05:58] LABS: ALBUMIN 1.8 g/dL (3.4-5.0); ALKALINE PHOSPHATASE 49 U/L (46-116); BILIRUBIN - TOTAL 0.25 mg/dL (0.2-1.3); CALC OSMOLALITY 284 mosm/kg (275-300); CARBON DIOXIDE 27.3 mmol/L (21.0-32.0); CHLORIDE - SERUM 106 mmol/L (98-107); CREATININE - SERUM 0.6 mg/dL (0.6-1.3); GLUCOSE 150 mg/dL (74-106); MAGNESIUM - SERUM 2.4 mg/dL (1.8-2.4); PHOSPHOROUS 2.6 mg/dL (2.5-4.9); POTASSIUM - SERUM 3.3 mmol/L (3.5-5.1); PROTEIN - SERUM 4.9 g/dL (6.4-8.2); SODIUM 140 mmol/L (136-145); UREA NITROGEN 22 mg/dL (7-18); eGFR NON AFRICAN AMERICAN > 90 mL/min (90-120)
[2018-03-16 06:04] LABS: ALT (SGPT) 19 U/L (10-68); CALCIUM 6.5 mg/dL (8.5-10.1)
[2018-03-16 15:07] LABS: BETA-2 MICROGLOBULIN 3.8 mg/L (0.6-2.4)
[2018-03-17] VITALS (24 sets, daily range): BP systolic 127–164; BP diastolic 66–85
[2018-03-17 11:07] LABS: HEMATOCRIT 32.1 % (42.0-54.0); MCH 30.2 pg (26.0-34.0); MCHC 34.3 g/dL (31.0-37.0); MCV 88.2 fL (80.0-100.0); MEAN PLATELET VOLUME 11.3 fL (7.4-10.4); PLATELET COUNT 381 10x3/uL (130-400); RBC 3.64 10x6/uL (4.20-6.10); RDW 17.7 % (11.5-14.5); WBC 27.8 10x3/uL (4.8-10.8)
[2018-03-17 11:39] LABS: CALC OSMOLALITY 291 mosm/kg (275-300); CALCIUM 7.1 mg/dL (8.5-10.1); CARBON DIOXIDE 28.2 mmol/L (21.0-32.0); CHLORIDE - SERUM 106 mmol/L (98-107); CREATININE - SERUM 0.6 mg/dL (0.6-1.3); POTASSIUM - SERUM 3.5 mmol/L (3.5-5.1); SODIUM 144 mmol/L (136-145); UREA NITROGEN 24 mg/dL (7-18); eGFR NON AFRICAN AMERICAN > 90 mL/min (90-120)
[2018-03-17 11:40] LABS: ALBUMIN 2.4 g/dL (3.4-5.0); ALKALINE PHOSPHATASE 53 U/L (46-116); ALT (SGPT) 20 U/L (10-68); BILIRUBIN - TOTAL 0.71 mg/dL (0.2-1.3); PROTEIN - SERUM 5.3 g/dL (6.4-8.2)
[2018-03-17 11:42] LABS: GLUCOSE 112 mg/dL (74-106)
[2018-03-17 12:10] LABS: ANISOCYTOSIS OCC; EOSINOPHILS 1 % (0-7); LYMPHOCYTES 2 % (15-50); MONOCYTES 4 % (2-11); NEUTROPHILS 84 % (40-80); PLATELET ESTIMATE NORMAL; SMUDGE CELLS 1+
[2018-03-17 12:11] LABS: POIKILOCYTOSIS OCC
[2018-03-18] VITALS (24 sets, daily range): BP systolic 79–154; BP diastolic 51–81
[2018-03-18 04:15] LABS: BASOPHILS 0 % (0-2); EOSINOPHILS 0 % (0-7); HEMATOCRIT 28.3 % (42.0-54.0); HEMOGLOBIN 9.8 g/dL (13.5-17.5); IMMATURE GRANULOCYTES 0.7 % (0-5); LYMPHOCYTES 4.3 % (15-50); MCH 30.5 pg (26.0-34.0); MCHC 34.6 g/dL (31.0-37.0); MCV 88.2 fL (80.0-100.0); MEAN PLATELET VOLUME 11.6 fL (7.4-10.4); MONOCYTES 2.2 % (2-11); NEUTROPHILS 92.8 % (40-80); PLATELET COUNT 330 10x3/uL (130-400); RBC 3.21 10x6/uL (4.20-6.10); RDW 17.7 % (11.5-14.5); WBC 20.2 10x3/uL (4.8-10.8)
[2018-03-18 04:22] LABS: INR 1.06 (0.85-1.17); PROTIME 13.3 SECONDS (11.6-15.0)
[2018-03-18 04:23] LABS: APTT 51.1 SECONDS (22.8-39.4); D-DIMER-QUANTITATIVE 1.68 ug/mLFEU (0.20-0.54)
[2018-03-18 04:30] LABS: CALC OSMOLALITY 283 mosm/kg (275-300); CARBON DIOXIDE 25.4 mmol/L (21.0-32.0); CHLORIDE - SERUM 104 mmol/L (98-107); CREATININE - SERUM 0.5 mg/dL (0.6-1.3); GLUCOSE 130 mg/dL (74-106); LDH 317 U/L (85-227); MAGNESIUM - SERUM 2.2 mg/dL (1.8-2.4); PHOSPHOROUS 3.2 mg/dL (2.5-4.9); POTASSIUM - SERUM 3.1 mmol/L (3.5-5.1); SODIUM 140 mmol/L (136-145); UREA NITROGEN 22 mg/dL (7-18); eGFR NON AFRICAN AMERICAN > 90 mL/min (90-120)
[2018-03-18 04:37] LABS: CALCIUM 6.7 mg/dL (8.5-10.1)
[2018-03-18 15:57] LABS: HEMATOCRIT 23.5 % (42.0-54.0); HEMOGLOBIN 8.2 g/dL (13.5-17.5)
[2018-03-19] VITALS (24 sets, daily range): BP systolic 105–145; BP diastolic 56–81
[2018-03-19 05:31] LABS: BASOPHILS 0 % (0-2); EOSINOPHILS 0 % (0-7); HEMOGLOBIN 9.5 g/dL (13.5-17.5); IMMATURE GRANULOCYTES 0.6 % (0-5); LYMPHOCYTES 3.8 % (15-50); MCH 29.9 pg (26.0-34.0); MCHC 33.9 g/dL (31.0-37.0); MCV 88.1 fL (80.0-100.0); MEAN PLATELET VOLUME 11.3 fL (7.4-10.4); MONOCYTES 0.8 % (2-11); NEUTROPHILS 94.8 % (40-80); RBC 3.18 10x6/uL (4.20-6.10); WBC 18.9 10x3/uL (4.8-10.8)
[2018-03-19 05:39] LABS: PLATELET COUNT 236 10x3/uL (130-400)
[2018-03-19 06:42] LABS: CALC OSMOLALITY 293 mosm/kg (275-300); CALCIUM 7.3 mg/dL (8.5-10.1); CARBON DIOXIDE 25.1 mmol/L (21.0-32.0); CHLORIDE - SERUM 108 mmol/L (98-107); CREATININE - SERUM 0.4 mg/dL (0.6-1.3); SODIUM 145 mmol/L (136-145); UREA NITROGEN 21 mg/dL (7-18); eGFR NON AFRICAN AMERICAN > 90 mL/min (90-120)
[2018-03-19 06:45] LABS: POTASSIUM - SERUM 3.6 mmol/L (3.5-5.1)
[2018-03-19 06:46] LABS: GLUCOSE 130 mg/dL (74-106)
--- NOTE | 2018-03-19 13:31 | OP ---
PATIENT NAME: DENISHA DE LOS SANTOS MEDICAL RECORD: [id number] :63 LOCATION:.[facility] D.2303 ADMISSION DATE:03/03/18 SURGEON: COLBY PIERCE MD DATE OF OPERATION: 03/18/2018 PREOPERATIVE DIAGNOSES: 1. Respiratory failure, on the ventilator. 2. Cachexia. 3. Hypoalbuminemia. POSTOPERATIVE DIAGNOSES: 1. Respiratory failure, on the ventilator. 2. Cachexia. 3. Hypoalbuminemia. PROCEDURE: PEG tube placement. SURGEON: Colby Pierce MD REPORT OF PROCEDURE: An Olympus endoscope was advanced through the mouth and esophagus. We penetrated into the stomach and insufflated the stomach and area was found on antrum of the stomach to house our PEG tube. We prepped the abdominal wall and infused a total of 5 mL of 1% lidocaine. The skin was nicked with an 11 blade and an angiocath needle was inserted through the abdominal wall and into the lumen of the abdomen. A wire was advanced through the Angiocath and this was grasped with an Endo snare. The snare and wire were pulled through the mouth and esophagus. We affixed the PEG tube to the wire, and the wire and PEG tube were pulled through the mouth and esophagus and through the anterior abdominal wall until it rested at 2 cm at the skin. The endoscope was advanced through the mouth and esophagus. Again, we inspected the stomach. There was no active bleeding from the site of the PEG tube placement, but there was some coffee-ground gastric contents present. We irrigated out the wound. I never saw any active bleeding from the ulcers, but there was noted gastritis. At this point, the insufflation and the scope were removed. COMPLICATIONS: None. CONDITION: Stable. ANESTHESIA: TIVA. BLOOD LOSS: Minimal. TRANSINT:[id number] Voice Confirmation ID: [id number] DOCUMENT ID: [id number] COLBY PIERCE MD at 1331 CC: [id number] DICTATION DATE: 03/18/18 1038 STOCK WETTER: 03/18/18 1052 ADM IN [facility] [address] [place] [address]
[2018-03-20] VITALS (18 sets, daily range): BP systolic 102–148; BP diastolic 56–107
[2018-03-20 04:12] LABS: BASOPHILS 0 % (0-2); EOSINOPHILS 0 % (0-7); HEMATOCRIT 29.9 % (42.0-54.0); HEMOGLOBIN 9.7 g/dL (13.5-17.5); IMMATURE GRANULOCYTES 0.7 % (0-5); MCH 28.6 pg (26.0-34.0); MCHC 32.4 g/dL (31.0-37.0); MCV 88.2 fL (80.0-100.0); MEAN PLATELET VOLUME 11.4 fL (7.4-10.4); MONOCYTES 2.1 % (2-11); NEUTROPHILS 96.2 % (40-80); PLATELET COUNT 230 10x3/uL (130-400); RBC 3.39 10x6/uL (4.20-6.10); RDW 18.1 % (11.5-14.5); WBC 20.3 10x3/uL (4.8-10.8)
[2018-03-20 04:17] LABS: APTT 37.9 SECONDS (22.8-39.4); INR 1.01 (0.85-1.17); PROTIME 12.8 SECONDS (11.6-15.0)
[2018-03-20 04:21] LABS: ALKALINE PHOSPHATASE 45 U/L (46-116); ALT (SGPT) 15 U/L (10-68); CALC OSMOLALITY 289 mosm/kg (275-300); CALCIUM 7.1 mg/dL (8.5-10.1); CHLORIDE - SERUM 109 mmol/L (98-107); CREATININE - SERUM 0.5 mg/dL (0.6-1.3); GLUCOSE 124 mg/dL (74-106); POTASSIUM - SERUM 3.6 mmol/L (3.5-5.1); SODIUM 144 mmol/L (136-145); UREA NITROGEN 18 mg/dL (7-18); eGFR NON AFRICAN AMERICAN > 90 mL/min (90-120)
--- NOTE | 2018-03-20 14:15 | MORECARE ---
CASE MANAGEMENT DISCHARGE SUMMARY PATIENT: DENISHA DE LOS SANTOS UNIT: [id number] ADM DATE: 03/03/18 AGE: 53 : 63 SEX: M ROOM/BED: D.2303 AUTHOR: MARIA A ELLIS PHYSICIAN: REFERRING PHYSICIAN: TANYA PEREZ MD DATE OF SERVICE: 03/20/18 Discharge Plan Patient Name: DENISHA DE LOS SANTOS Facility: [facility]:[place] : 1965 Planned Disposition: Home Anticipated Discharge Date: Discharge Date: Expected LOS: Initial Reviewer: [email or web address] Initial Review Date: 03/04/2018 Generated: 03/20/18 3:15 pm Comments DCP- Discharge Planning Updated by [email or web address]: Sheba Garrett on 03/20/18 1:[address] LATE ENTRY 09 PRIMARY NURSE, FELICIA, CALLED NATE ADVISE CM OF POSSIBLE TRANSFER TO [place], [place]. TC TO [facility] AND SPOKE WITH CAR TRACER, KIM. [facility] DOES NOT HAVE RHEUMATOLOGY ON STAFF. DOES HAVE SOME NEUROLOGY COVERAGE. NO ICU BED AVAILABLE AT THIS TIME. CM CALLED TO ADVISE FELICIA SO THAT SHE WOULD ADVISE DR PEREZ. 1245 PRIMARY NURSE CALLED CM TO SAY THE PATIENT HAD [facility]. CM CALLED THE NURSING CAR TRACER, PHILIPPE RE: ACCEPTANCE. DCP- Discharge Planning Updated by [email or web address]: Helena Cabrera on 03/04/18 3:[address] Patient Name: DENISHA DE LOS SANTOS Admission Status: ER Accout number: [id number] Admission Date: 03-03-2018 : 1965 Admission Diagnosis: Attending: TANYA PEREZ Current LOS: 1 Anticipated DC Date: Planned Disposition: Home Primary Insurance: MEDICAID [place] PENDING Discharge Planning Comments: CM met with patient to discuss discharge planning, he is alone in the room. States he lives with his 21 year old son. States his will take him home on discharge (he does not live with his , states she is his best friend). States he is independent with all ADL's and IADL's. States he does not have any DME or need any DME. Declines need for home health services. No needs currently identified. He does not have a qualifying diagnosis for oxygen or nebulizer. His Medicaid is pending. CM will continue to follow and assist with discharge planning/needs. Assistant Editor: Helena Abbottsemaj DCPIA - Discharge Planning Initial Assessment Updated by [email or web address]: Helena Abbottsemaj on 03/04/18 4:31 pm * Is the patient Alert and Oriented? Yes * How many steps to enter\exit or inside your home? 4/0 * PCP Unknown - states has seen an FUNCTIONAL TESTER [employer] on [address] near [facility] * Pharmacy [facility] on [facility] * Preadmission Environment Home with Family * ADLs Independent * Equipment None * List name and contact numbers for known caregivers / representatives who currently or will assist patient after discharge: Eva - - [phone] Shannan - son * Verbal permission to speak to the caregivers and representatives has been obtained from the patient. Yes * Community resources currently utilized None * Additional services required to return to the preadmission environment? No * Can the patient safely return to the preadmission environment? Yes * Has this patient been hospitalized within the prior 30 days at any hospital? No Last DP export: 03/04/18 3:46 Patient Name: DENISHA DE LOS SANTOS Page [id number] at 1415 All edits/amendments must be made on the electronic document DICTATION DATE: 03/20/181413 BAKED GOODS STOCK CLERK: KATHRYN 03/20/181413 RPT#: [id number] DC DATE: STATUS: ADM IN [facility] [address] [place] [address] END OF REPORT
--- NOTE | 2018-03-22 10:49 | MORECARE ---
CASE MANAGEMENT DISCHARGE SUMMARY PATIENT: DENISHA DE LOS SANTOS UNIT: [id number] ADM DATE: 03/03/18 AGE: 53 : 63 SEX: M ROOM/BED: D.2303 AUTHOR: MARIA A ELLIS PHYSICIAN: REFERRING PHYSICIAN: TANYA PEREZ MD DATE OF SERVICE: 03/22/18 Discharge Plan Patient Name: DENISHA DE LOS SANTOS Facility: [facility]:[place] : 1965 Planned Disposition: Home Anticipated Discharge Date: Discharge Date: 03/20/2018 Expected LOS: Initial Reviewer: [email or web address] Initial Review Date: 03/04/2018 Generated: 03/22/18 11:49 am Comments DCP- Discharge Planning Updated by [email or web address]: Sheba Garrett on 03/20/18 1:[address] LATE ENTRY 0920 PRIMARY NURSE, FELICIA, CALLED NATE ADVISE CM OF POSSIBLE TRANSFER TO [place], [place]. TC TO [facility] AND SPOKE WITH AUTOMOTIVE SHOP FOREMAN, KIM. [facility] DOES NOT HAVE RHEUMATOLOGY ON STAFF. DOES HAVE SOME NEUROLOGY COVERAGE. NO ICU BED AVAILABLE AT THIS TIME. CM CALLED TO ADVISE FELICIA SO THAT SHE WOULD ADVISE DR PEREZ. 1247 PRIMARY NURSE CALLED CM TO SAY THE PATIENT HAD BEEN ACCEPTED BY [facility]. CM CALLED THE NURSING AUTOMOT[employer] SHOP FOREMAN, PHILIPPE RE: ACCEPTANCE. DCP- Discharge Planning Updated by [id number]: Helena Cabrera on 03/04/18 3:[address] Patient Name: DENISHA DE LOS SANTOS Admission Status: ER Accout number: [id number] Admission Date: 03-03-2018 : 1965 Admission Diagnosis: Attending: TANYA PEREZ Current LOS: 1 Anticipated DC Date: Planned Disposition: Home Primary Insurance: MEDICAID [place] PENDING Discharge Planning Comments: CM met with patient to discuss discharge planning, he is alone in the room. States he lives with his 21 year old son. States his will take him home on discharge (he does not live with his , states she is his best friend). States he is independent with all ADL's and IADL's. States he does not have any DME or need any DME. Declines need for home health services. No needs currently identified. He does not have a qualifying diagnosis for oxygen or nebulizer. His Medicaid is pending. CM will continue to follow and assist with discharge planning/needs. Certified Emergency Vehicle Technician: Helena Abbottsemaj DCPIA - Discharge Planning Initial Assessment Updated by [email or web address]: Helena Abbottsemaj on 03/04/18 4:31 pm * Is the patient Alert and Oriented? Yes * How many steps to enter\exit or inside your home? 4/0 * PCP Unknown - states has seen an [facility] * Pharmacy [facility] on [facility] * Preadmission Environment Home with Family * ADLs Independent * Equipment None * List name and contact numbers for known caregivers / representatives who currently or will assist patient after discharge: Eva - - [phone] Shannan - son * Verbal permission to speak to the caregivers and representatives has been obtained from the patient. Yes * Community resources currently utilized None * Additional services required to return to the preadmission environment? No * Can the patient safely return to the preadmission environment? Yes * Has this patient been hospitalized within the prior 30 days at any hospital? No Last DP export: 03/20/18 1:15 pm Patient Name: DENISHA DE LOS SANTOS Page [id number] at 1049 All edits/amendments must be made on the electronic document DICTATION DATE: 03/22/18 1049 BUSINESS TRAVEL CONSULTANT: KATHRYN 03/22/18 1049 RPT#: [id number] DC DATE:03/20/18 STATUS: DIS IN [facility] [address] [place] [address] END OF REPORT
[2018-03-22 18:08] LABS: SPE - ALBUMIN 2.6 g/dL (2.9-4.4); SPE - ALPHA-1 GLOBULIN 0.2 g/dL (0.0-0.4); SPE - ALPHA-2 GLOBULIN 0.9 g/dL (0.4-1.0); SPE - BETA GLOBULIN 0.6 g/dL (0.7-1.3); SPE - GAMMA GLOBULIN 0.9 g/dL (0.4-1.8); SPE - M-SPIKE Not Observed g/dL (Not Observed); SPE - TOTAL PROTEIN 5.2 g/dL (6.0-8.5)
== END 2018-03-20 17:16 | disposition short-term general hospital (02) | DRG 4 ==
LOC: D.ER 12:20 → D.MS 17:28 → D.EDHOLD 17:28 → D.ICU 17:28 → D.MS 17:55 → D.ICU 03-05 16:45 → D.MS 03-05 17:53 → D.ICU 03-05 23:00
PROVIDERS: Emergency Medicine; Family Medicine; Internal Medicine Hematology & Oncology; Internal Medicine Pulmonary Disease; Surgery; ADMIT Internal Medicine Nephrology
PROC: 0HBDXZX Excision of Right Lower Arm Skin, External Approach, Diagnostic (ICD-10-PCS; 2018-03-05)
PROC: 0KB90ZX Excision of Right Lower Arm and Wrist Muscle, Open Approach, Diagnostic (ICD-10-PCS; principal; 2018-03-05 12:45)
PROC: 5A1955Z Respiratory Ventilation, Greater than 96 Consecutive Hours (ICD-10-PCS; 2018-03-06)
PROC: 0BH17EZ Insertion of Endotracheal Airway into Trachea, Via Natural or Artificial Opening (ICD-10-PCS; 2018-03-06)
PROC: 03HC33Z Insertion of Infusion Device into Left Radial Artery, Percutaneous Approach (ICD-10-PCS; 2018-03-06)
PROC: 05HN33Z Insertion of Infusion Device into Left Internal Jugular Vein, Percutaneous Approach (ICD-10-PCS; 2018-03-06)
PROC: 0B113F4 Bypass Trachea to Cutaneous with Tracheostomy Device, Percutaneous Approach (ICD-10-PCS; 2018-03-17)
PROC: 0DH63UZ Insertion of Feeding Device into Stomach, Percutaneous Approach (ICD-10-PCS; 2018-03-18)
DX: M33.13 Other dermatomyositis without myopathy (principal); J69.0 Pneumonitis due to inhalation of food and vomit; J96.01 Acute respiratory failure with hypoxia; E43 Unspecified severe protein-calorie malnutrition; A40.3 Sepsis due to Streptococcus pneumoniae; R65.21 Severe sepsis with septic shock; J15.6 Pneumonia due to other Gram-negative bacteria; L88 Pyoderma gangrenosum; Z68.1 Body mass index [BMI] 19.9 or less, adult; J47.0 Bronchiectasis with acute lower respiratory infection; D68.9 Coagulation defect, unspecified; M32.9 Systemic lupus erythematosus, unspecified; E83.42 Hypomagnesemia; D50.9 Iron deficiency anemia, unspecified; J47.9 Bronchiectasis, uncomplicated; E87.6 Hypokalemia; Z87.891 Personal history of nicotine dependence